=== PATIENT | female | born 1955 | race Caucasian/White ===

== ENCOUNTER → 2017-02-26 | Outpatient (CLI) | payer OTHER ==
[~2017-02-26] MED LIST: ALEVE220 M2 PO; CELECOXIB200 MG PO; Claritin,Alavart PO; ENDOCET 5-3251 EACH PO; FERROUS SULFAT325 MG PO; Flonase BOTH NARES; LIPITOR20 MG PO; LOVENOX40 MG/0.4 SC; Lovenox SC; Milk Of Magnesia,MOM PO; NASACORT AQ16.5 GM BOTH NARES; NIFEDICAL XL30 MG PO; NORCO 5/3251 TABLET PO; Procardia XL,Adalat PO; SYNTHROID100 MCG PO; TYLENOL EXTRA500 MG PO; Tylenol Extra Streng PO; Ultram PO
== END | disposition home or self-care (01) ==
LOC: NUC 13:38
PROC: 0HBU3ZX Excision of Left Breast, Percutaneous Approach, Diagnostic (ICD-10-PCS; principal; 2017-02-26)
DX: C50.912 Malignant neoplasm of unspecified site of left female breast (principal)
CPT/HCPCS: 78195; 78999; A9541

== ENCOUNTER 2017-02-27 05:29 | Day surgery (SDC) | payer OTHER ==
[~2017-02-27] VITALS: Ht 175.3 cm; Wt 136.9 kg
[~2017-02-27 05:29] MED LIST changes: -NORCO 5/3251 TABLET PO
[2017-02-27 06:39] VITALS: BP 115/59
[2017-02-27] MEDS ORDERED: NORCO 5/3251 TABLET PO (11:37)
[2017-02-27 12:55] VITALS: BP 132/86
[2017-02-27 15:00] VITALS: BP 130/84
== END 2017-02-27 15:25 | disposition home or self-care (01) ==
LOC: SDC
DX: C50.812 Malignant neoplasm of overlapping sites of left female breast (principal); K21.9 Gastro-esophageal reflux disease without esophagitis; Z88.0 Allergy status to penicillin
CPT/HCPCS: 88305; 88307; J0330; J0690; J1100; J1170; J2250; J2405; J2710; J2765; J3010

== ENCOUNTER 2017-10-13 22:04 | Inpatient (IN) | payer OTHER ==
[~2017-10-13] VITALS: Ht 172.7 cm; Wt 143.3 kg
[~2017-10-13 22:04] MED LIST changes: +ARIMIDEX1 MG PO; +LIPITOR10 MG PO; -LIPITOR20 MG PO; +NORCO 5/3251 TABLET PO
[2017-10-14 06:52] VITALS: BP 134/66
[2017-10-14 12:31] LABS: HEMATOCRIT 41.8 % (36.0-46.0); HEMOGLOBIN 13.2 G/DL (11.9-15.5); MCH 29.4 PG (29.0-34.0); MCHC 31.6 G/DL (30.0-36.0); MCV 93.1 FL (83-99); PLATELET COUNT 270 K/uL (156-360); RBC DIS.WIDTH-CV 12.8 % (11.8-14.6); RBC DIS.WIDTH-SD 43.8 % (39-53); RED BLOOD COUNT 4.49 M/uL (3.80-5.20); WHITE BLOOD COUNT 6.5 K/uL (4.1-10.2)
[2017-10-14 12:56] VITALS: BP 126/60
[2017-10-14 15:32] VITALS: BP 136/72
[2017-10-14 20:04] VITALS: BP 128/82
[2017-10-15] VITALS (7 sets, daily range): BP systolic 119–150; BP diastolic 58–69
[2017-10-15 07:04] LABS: HEMATOCRIT 37.1 % (36.0-46.0); HEMOGLOBIN 11.8 G/DL (11.9-15.5); MCV 91.8 FL (83-99)
[2017-10-15 07:21] LABS: CHLORIDE 104 MEQ/L (99-109); CREATININE 0.8 MG/DL (0.6-1.3); GFR ESTIMATE (CALCULATED) > 59 mL/min/; GLUCOSE 133 mg/dL (70-99); SODIUM 136 MEQ/L (136-147); UREA NITROGEN (BUN) 12 mg/dL (9-23)
[2017-10-15] MEDS ORDERED: ENDOCET 5-3251 EACH PO (16:40)
[2017-10-15] MEDS ORDERED: LOVENOX40 MG/0.4 SC (16:40)
[2017-10-16 00:12] VITALS: BP 127/61
[2017-10-16 04:15] VITALS: BP 122/61
[2017-10-16 05:53] LABS: HEMATOCRIT 35.1 % (36.0-46.0); HEMOGLOBIN 11.1 G/DL (11.9-15.5); MCV 91.2 FL (83-99)
[2017-10-16 08:00] VITALS: BP 115/56
[2017-10-16 12:00] VITALS: BP 98/50
== END 2017-10-16 15:15 | DRG 470 ==
LOC: ENRESERV 22:04 → 2SOUTH 10-14 06:23 → 3WEST 10-14 12:29 → 2SOUTH 10-14 15:53 → 3WEST 10-16 15:15
PROVIDERS: Orthopaedic Surgery
PROC: 0SRC0J9 Replacement of Right Knee Joint with Synthetic Substitute, Cemented, Open Approach (ICD-10-PCS; principal; 2017-10-14)
DX: M17.11 Unilateral primary osteoarthritis, right knee (principal); M25.561 Pain in right knee; E66.01 Morbid (severe) obesity due to excess calories; I73.00 Raynaud's syndrome without gangrene; E78.00 Pure hypercholesterolemia, unspecified; J30.2 Other seasonal allergic rhinitis; E07.9 Disorder of thyroid, unspecified; Z85.3 Personal history of malignant neoplasm of breast; Z96.652 Presence of left artificial knee joint; Z83.3 Family history of diabetes mellitus; Z82.49 Family history of ischemic heart disease and other diseases of the circulatory system; Z68.42 Body mass index [BMI] 45.0-49.9, adult; Z90.710 Acquired absence of both cervix and uterus
CPT/HCPCS: 73560; 80048; 85014; 85018; 85027; C1713; J0690; J1100; J1650; J2250; J2405; J2795; J3370; J7030; J7050; Q0175